=== PATIENT | male | born 2000 | race Caucasian/White ===

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

== ENCOUNTER 2020-05-14 11:50 | Emergency (ER) | payer OTHER, SELFPAY ==
--- NOTE | ~2020-05-14 | XR_ITS ---
EXAMINATION: XR lumbar spine 2-3V DATE: 05/14/2020 12:32 INDICATION: Low back pain. TECHNIQUE: 3 views of lumbar spine were obtained. COMPARISON: None. FINDINGS: Bone alignment is normal. There is mild chronic anterior wedging of T12 vertebral body, lik sola physiologic. There are Schmorl's nodes at multiple levels. Intervertebral disc heights are normal . The facet joints are unremarkable. IMPRESSION: 1. Mild lumbar spondylosis. Reviewed, dictated and finalized at location A. OR SPECIALIST IMPRESSION: 1. Mild lumbar spondylosis.
[2020-05-14 11:56] VITALS: BP 119/72; PULSE 71; RESP 16; TEMP 36.4; O2SAT 100
--- NOTE | 2020-05-14 12:01 | ED.GENADULT ---
HPI - General Adult General Chief complaint: Back Pain/Injury Stated complaint: BACK PAIN Time Seen by Provider: 05/14/20 12:08 Source: patient and RN notes reviewed Mode of arrival: ambulatory Limitations: no limitations History of Present Illness HPI narrative: 20-year-old male presents with complaints of diffused lower back pain for the past 3 days. Vik reports that he works requires him to do strenuous activity often and last night he had an episode of numbness and tingling to LT arm, none at this time. Tylenol 1,000mg (last on 05/13/20 @ 23:00) with no relief. Denies new injuries or falls. Complains of intermittent radiating pain to upper LT back. Denies fever or chills. No upper or lower extremity weakness. Exacerbating factors consist of prolong standing and bending. Denies nausea, vomiting, or abdominal pain. Tolerating po intake well. Denies problems with urinating or having a bowel movement, LBM this morning per patient and normal. No flank pain or hematuria or dysuria. The patient reports he have not been diagnosed with COVID-19. The patient reports he is not waiting for the results of a COVID-19 lab test. The patient reports he received a NEGATIVE COVID-19 test today, obtained after his father tested POSITIVE several days ago. The patient reports he do not have fever, chills, or weakness. The patient reports he do not have a new or worsening cough or shortness of breath. Denies chest pain. The patient reports he do not have any rhinorrhea, congestion, loss of taste, sore throat, and diarrhea. Denies recent traveling. Vik reports concerns for COVID-19 due to several family exposures but has been home with limited outdoor exposure except for essential household needs, work, and return home. At this time, patient is not suspected of having COVID-19. Some parts of this dictation were generated by voice recognition software and may contain typographical and/or grammatical inaccuracies. Related Data Allergies Allergy/AdvReac Type Severity Reaction Status Date / Time amoxicillin Allergy Unknown Skin Verified 05/14/20 11:55 Reaction Penicillins Allergy Unknown Skin Verified 05/14/20 11:55 Reaction Review of Systems Review of Systems: Narrative: CONSTITUTIONAL: Denies fever, chills, sweats. EYES: Denies visual changes, redness, discharge. ENT: Denies rhinorrhea, congestion, sore throat, otalgia. CARDIOVASCULAR: Denies chest pain, palpitations, edema. RESPIRATORY: Denies dyspnea, wheezing, cough. GASTROINTESTINAL: Denies abdominal pain, nausea, vomiting, diarrhea. GENITOURINARY: Denies dysuria, hematuria, abnormal discharge. SKIN: Denies rash or itching. MUSCULOSKELETAL: Complains of diffused lower back pain. Denies joint pain or myalgia. NEUROLOGIC: Denies numbness or focal weakness. PSYCHIATRIC: Denies anxiety or depression. All systems reviewed & are unremarkable except as noted in HPI and below [facility] Past Medical History Medical History (Updated 05/14/20 @ 13:35 by JODIE Cagle) Adjustment disorder Concussion Head injury Knee strain Migraine Vik says started after head injury he experienced in [employer] Rhus dermatitis Tear of MCL (medial collateral ligament) of knee LT Surgical History Surgical History No significant past surgical history Family History Family History Other Family history of attention deficit hyperactivity disorder (ADHD) Social History Social History (Updated 05/14/20 @ 12:31 by JODIE Cagle) Smoking status: Never smoker Tobacco type: cigarettes Second hand tobacco smoke exposure: Yes (Vik reports he is exposed by coworkers) Alcohol intake: current Substance use: never Living arrangements: with family Additional living arrangements comments: Parent Occupation/Education: occupation Gender identi
== END 2020-05-14 12:53 | disposition home or self-care (01) ==
PROVIDERS: Emergency Provider Nurse Practitioner Family; PCP Family Medicine
DX: M54.5 Low back pain (principal); M47.816 Spondylosis without myelopathy or radiculopathy, lumbar region
CPT/HCPCS: 72100; 99213; G0463

== ENCOUNTER 2020-05-30 17:02 | Emergency (ER) | payer OTHER, SELFPAY ==
--- NOTE | ~2020-05-30 | XR_ITS ---
EXAMINATION: XR hand LT min 3V DATE: 05/30/2020 17:21 INDICATION: Left hand pain. TECHNIQUE: 3 views of left hand were obtained. COMPARISON: None. FINDINGS: Bone alignment is normal. No fracture. Joint spaces are well maintained. IMPRESSION: 1. Normal left hand. Reviewed, dictated and finalized at location A. ACE OPERATOR AND TENDER IMPRESSION: 1. Normal left hand.
[2020-05-30 17:08] VITALS: BP 131/76; PULSE 66; RESP 20; TEMP 37.1; O2SAT 100
--- NOTE | 2020-05-30 17:14 | ED.UPPEXIN ---
HPI - Extremity Injury (Upper) General Chief Complaint: Extremity Injury, Upper Stated Complaint: lt hand injury Time Seen by Provider: 05/30/20 17:14 Source: patient and RN notes reviewed Mode of arrival: ambulatory Limitations: no limitations History of Present Illness HPI narrative: 20 year old [facility] who [facility] of injury to his dorsal distal fingers on his left hand # 3,4, and 5th fingers. he states that he was working on a spring loaded air gun and spring came back and pinched and smashed his rd, 4th and 5th distal dorsal fingers with no damage to his nail. Patient has small superficial laceration to the distal dorsal region near DIP area which measures 1cm with no bleeding noted. also avulsion type of area to the 4th distal dorsal region near DIP region. Patient states that his finger tips feel kind of numb and it is painful to move fingers he has strong left radial pulse and fingers pink and warm. MD complaint: injury to: left and finger (3rd,4th and 5th fingers left hand dorsal area) Onset (ago): hour(s) (approximately 1 hour) Other Extremity Injury: Left: fingers (3rd, 4th, 5th distal dorsal area) Other injuries: none Handedness: right Place: home Severity: moderate Severity scale (1-10): 2 Exacerbating factors: movement of extremity Context: other (contusion) Associated symptoms: numbness (to finger tips) Treatments prior to arrival: bandage Related Data Home Medications Medication Instructions Recorded Confirmed cyclobenzaprine mg 05/30/20 Allergies Allergy/AdvReac Type Severity Reaction Status Date / Time amoxicillin Allergy Unknown Skin Verified 05/30/20 17:14 Reaction Penicillins Allergy Unknown Skin Verified 05/30/20 17:14 Reaction Review of Systems Review of Systems: Narrative: CONSTITUTIONAL: Denies fever, chills, or sweats. EYES: Denies visual changes, redness, or discharge. ENT: Denies rhinorrhea, congestion, sore throat, or otalgia. CARDIOVASCULAR: Denies chest pain, palpitations, or edema. RESPIRATORY: Denies cough or dyspnea. GASTROINTESTINAL: Denies abdominal pain, nausea, vomiting, or diarrhea. GENITOURINARY: Denies dysuria or hematuria. SKIN: Denies rash or itching.superficial 1cm laceration to 3rd finger left hand distal dorsal area with no drainage and avulsion of small area of skin distal dorsal 4th finger MUSCULOSKELETAL: Denies back pain,positive for discomfort to the distal dorsal area of left 3.4.and 5th fingers , or myalgia. NEUROLOGIC: Denies headache, numbness, or weakness. PSYCHIATRIC: history of anxiety or depression. All systems reviewed & are unremarkable except as noted in HPI and below [facility] Past Medical History Medical History Adjustment disorder Concussion Head injury Knee strain Migraine Vik says started after head injury he experienced in [employer] Rhus dermatitis Tear of MCL (medial collateral ligament) of knee LT Surgical History Surgical History No significant past surgical history Family History Family History Other Family history of attention deficit hyperactivity disorder (ADHD) Social History Social History Smoking status: Never smoker Tobacco type: cigarettes Second hand tobacco smoke exposure: Yes (Vik reports he is exposed by coworkers) Alcohol intake: current Substance use: never Additional living arrangements comments: Parent Gender identity (if verbalized by the patient): Male Comments At time of signature, agree with nursing past medical, surgical, social and family history. There is no relevant family history pertinent to the presenting complaint Exam Narrative: Exam Narrative: GENERAL: Well-appearing, well-nourished, and in no acute distress. HEAD: Normocephal
== END 2020-05-30 17:45 | disposition home or self-care (01) ==
PROVIDERS: Emergency Provider Registered Nurse; PCP Family Medicine
DX: S60.032A Contusion of left middle finger without damage to nail, initial encounter (principal); S60.042A Contusion of left ring finger without damage to nail, initial encounter; S60.052A Contusion of left little finger without damage to nail, initial encounter; W22.8XXA Striking against or struck by other objects, initial encounter; S60.413A Abrasion of left middle finger, initial encounter; S60.415A Abrasion of left ring finger, initial encounter
CPT/HCPCS: 73130; 99213; G0463

== ENCOUNTER → 2020-09-25 13:01 | Outpatient (CLI) | payer OTHER, SELFPAY ==
--- NOTE | ~2020-09-25 | XR_ITS ---
EXAMINATION: XR forearm RT 2V, XR wrist RT 2V, XR elbow RT min 3V DATE: 09/25/2020 16:11 INDICATION: 4 days of right elbow, forearm and wrist pain. TECHNIQUE: 1. 4 views of the right elbow including anteroposterior, flexed lateral and 2 oblique projections. 2. AP an lateral views of the right forearm were obtained. 3. Dorsal palmar and lateral views of the right wrist were obtained. COMPARISON: none FINDINGS: Bone alignment is normal from the right elbow through the wrist and visualized right hand. There is e xaggerated indentation of the cortical contour at the posterior right radial head neck junction suspi cious for fracture but without definitive sharp angulation of the cortex or suspicious linear lucency or sclerosis to suggest acute fracture with favor old fracture deformity. No other lesions suspiciou s for fracture identified. Joint spaces are normal. Soft tissues are unremarkable. No right elbow tanisha nt effusion. IMPRESSION: 1. Suggestion of old healed fracture at the proximal right radial head neck junction. Correlate with clinical history. No acute osseous abnormality. Reviewed, dictated and finalized at location A. IMPRESSION: 1. Suggestion of old healed fracture at the proximal right radial head neck jorge a ction. Correlate with clinical history. No acute osseous abnormality. IMPRESSION: 1. Suggestion of old healed fracture at the proximal right radial head neck jorge a ction. Correlate with clinical history. No acute osseous abnormality.
== END ==
PROVIDERS: PCP Family Medicine; Visit Provider Physician Assistant
DX: M79.639 Pain in unspecified forearm (principal)
CPT/HCPCS: 73080; 73090; 73100

== ENCOUNTER → 2021-10-24 07:48 | Outpatient (CLI) | payer OTHER, SELFPAY ==
--- NOTE | ~2021-10-24 | US_ITS ---
EXAMINATION: US soft tissue abdomen DATE: 10/24/2021 08:13 INDICATION: Periumbilical pain TECHNIQUE: Multiple grayscale and Doppler ultrasound images of the abdomen were obtained. COMPARISON: None FINDINGS: Subtle movement with Valsalva of a minimal amount of fat within a tiny umbilical hernia measuring les s than 1 cm in maximal dimension. No evident herniated bowel. IMPRESSION: 1. Tiny fat-containing umbilical hernia. Reviewed, dictated and finalized at location B.
== END ==
PROVIDERS: PCP Family Medicine; Visit Provider Physician Assistant
DX: R10.33 Periumbilical pain (principal); K42.9 Umbilical hernia without obstruction or gangrene
CPT/HCPCS: 76705

== ENCOUNTER 2022-08-26 08:55 | Emergency (ER) | payer OTHER, SELFPAY ==
--- NOTE | ~2022-08-26 | CT_ITS ---
EXAMINATION: CT brain wo con DATE: 08/26/2022 09:46 INDICATION: Head injury. TECHNIQUE: Computed tomography (CT) of the head was performed without intravenous contrast. The mA wa s adjusted according to patient size. Iterative reconstruction technique was employed. The dose-lengt h product was 605.33 mGy-cm. COMPARISON: Head CT 03/24/2018 FINDINGS: There is no intracranial hemorrhage, acute infarction, or abnormal intracranial mass lesion . The ventricles are normal in size. There is mild mucosal thickening in the paranasal sinuses. The o rbits are normal. The mastoid air cells are normal. IMPRESSION: 1. Normal brain. Reviewed, dictated and finalized at location D. IMPRESSION: 1. Normal brain.
[2022-08-26 09:21] VITALS: BP 124/80; PULSE 64; RESP 18; TEMP 36.5; O2SAT 99
[2022-08-26 11:17] VITALS: BP 125/85; PULSE 69; RESP 18; TEMP 37; O2SAT 100
[2022-08-26 11:21] VITALS: O2SAT 100
--- NOTE | 2022-08-26 11:26 | ED.HEATRA ---
HPI - Head Injury General Chief complaint: Head Injury Stated complaint: head injury Time Seen by Provider: 08/26/22 11:20 Source: patient and RN notes reviewed Mode of arrival: ambulatory Limitations: no limitations History of Present Illness HPI Narrative: This is a 22 year old male who presents for evaluation of a head injury. Patient states he was hit on left side of head with metal post at work yesterday. He denies LOC. He has dizziness with nausea. He also reports throbbing left side headache today. He took some home remedy with essential oils, but he has not taken any other medication or treatment. Related Data Allergies Allergy/AdvReac Type Severity Reaction Status Date / Time amoxicillin Allergy Unknown Skin Verified 08/26/22 11:21 Reaction Penicillins Allergy Unknown Skin Verified 08/26/22 11:21 Reaction Review of Systems Constitutional: Constitutional: Denies weakness Cardiovascular: Cardiovascular: Denies syncope, Denies rapid heart rate, Denies irregular heart rhythm, Denies leg edema and Denies dyspnea Respiratory: Respiratory: Denies chest congestion, Denies hemoptysis, Denies excessive phlegm production and Denies dyspnea Gastrointestinal: Gastrointestinal: Denies abdominal pain, Denies hematochezia, Denies diarrhea, Reports nausea and Denies vomiting Genitourinary: Genitourinary: Denies hematuria, Denies dysuria, Denies penile discharge and Denies testicular pain Musculoskeletal: Musculoskeletal: Denies joint swelling, Denies loss of height and Denies muscle weakness Neurologic: Reports dizziness, Denies syncope, Reports headache(s), Denies focal weakness and Denies weakness PMFSH Past Medical History Medical History (Updated 08/26/22 @ 12:47 by Venus Soares MD) Adjustment disorder Concussion Head injury Knee strain Migraine Vik says started after head injury he experienced in [employer] Rhus dermatitis Tear of MCL (medial collateral ligament) of knee LT Surgical History Surgical History No significant past surgical history Family History Family History Other Family history of attention deficit hyperactivity disorder (ADHD) Social History Social History Smoking status: Never smoker Tobacco type: cigarettes Second hand tobacco smoke exposure: Yes (Vik reports he is exposed by coworkers) Alcohol intake: current Substance use: never Living arrangements: with family Additional living arrangements comments: Parent Occupation/Education: occupation Gender identity (if verbalized by the patient): Male Sexual Orientation (if Verbalized by the Patient): Straight or Heterosexual Exam Const: General: no acute distress and alert Nutritional Appearance: well nourished Orientation/consciousness: patient oriented x3 Limitations: no limitations HENMT: Head: normal to inspection Ears: external ears normal Face/Nose/Sinus: Normal external nose present Face and sinus: normal facial exam Throat: posterior oropharynx normal and uvula midline Eyes: EOM: EOMs intact bilaterally Neck: Neck: normal visual inspection Chest: Chest palpation & inspection: normal inspection of the chest Resp: Effort & Inspection: normal respiratory effort Auscultation: clear to auscultation bilaterally Cardio: Rate: regular rate Rhythm: regular rhythm Heart sounds: no murmurs GI: GI Palp: Yes Soft to palpation, No Tenderness to palpation present (GI), No Guarding due to palpation present (GI) and No Rigid due to palpation Skin: General skin exam: normal color Rashes: no rashes Wounds: no wounds Neuro: General: patient oriented x3 and moves all extremities Cranial nerves: Yes CN's II-XII intact bilaterally Speech: normal speech Gait exam (Neuro): Normal gait present Extrem: General: normal to inspection
[2022-08-26] MEDS: IBUPROFEN 400 MG TABLET 800 MG PO (11:39)
[2022-08-26] MEDS: ONDANSETRON HCL ODT 4 MG TABLET PO (11:39)
== END 2022-08-26 12:54 | disposition home or self-care (01) ==
PROVIDERS: Emergency Provider General Practice; PCP Family Medicine
DX: S06.0X0A Concussion without loss of consciousness, initial encounter (principal); Z77.22 Contact with and (suspected) exposure to environmental tobacco smoke (acute) (chronic); W22.8XXA Striking against or struck by other objects, initial encounter
CPT/HCPCS: 70450; 99284; A9270

== ENCOUNTER 2022-11-19 10:41 | Emergency (ER) | payer OTHER, SELFPAY ==
--- NOTE | 2022-11-19 10:44 | ED.EXTPRO ---
HPI - Extremity Problem General Chief complaint: Extremity Problem,Nontraumatic Stated complaint: R ARM SWELLING/CAN'T USE HAND Time Seen by Provider: 11/19/22 10:44 Source: patient Mode of arrival: ambulatory Limitations: no limitations History of Present Illness HPI Narrative: Vik is a 22-year-old male patient presenting to the clinic today with complaints of right arm swelling and unable to use his right hand. He reports symptoms have been going on for 2 years but has recently gotten worse. He has been told he has had tendinitis in his forearm and wrist. States he is having difficulty gripping with the right hand and is dropping items. 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 Does repetitious work and uses a lot of tools that causes vibration. States the pain is sharp and his wrist and radiates up into the forearm. Related Data Allergies Allergy/AdvReac Type Severity Reaction Status Date / Time amoxicillin Allergy Unknown Skin Verified 08/26/22 11:21 Reaction Penicillins Allergy Unknown Skin Verified 08/26/22 11:21 Reaction Review of Systems Review of Systems: Pertinent positives per HPI. Patient denies any fever, chills, rash, headache, visual changes, dizziness, cough, runny nose, sore throat, shortness of breath, chest pain, palpitations, nausea, vomiting, diarrhea, constipation, abdominal pain, or any urinary issues. [facility] Past Medical History Medical History Adjustment disorder Concussion Head injury Knee strain Migraine Vik says started after head injury he experienced in the [facility] Rhus dermatitis Tear of MCL (medial collateral ligament) of knee LT Surgical History Surgical History No significant past surgical history Family History Family History Other Family history of attention deficit hyperactivity disorder (ADHD) Social History Social History Smoking status: Never smoker Tobacco type: cigarettes Second hand tobacco smoke exposure: Yes (Vik reports he is exposed by coworkers) Alcohol intake: current Substance use: never Living arrangements: with family Additional living arrangements comments: Parent Occupation/Education: occupation Gender identity (if verbalized by the patient): Male Sexual Orientation (if Verbalized by the Patient): Straight or Heterosexual Comments At the time of my signature, I reviewed and agree with the nursing past medical, surgical, social, and family history. There is no relevant family history pertinent to the patient complaint. Exam Narrative: General: Well-developed, well nourished, in no apparent distress Head: Normocephalic, atraumatic. Cardio: Regular rate and rhythm, s1 and s2 normal, no murmur appreciated. Resp: Clear to auscultation bilaterally, no rhonchi, rales, wheezing or rubs. Musculoskeletal: No deformity, mild swelling to the right wrist and forearm, positive Tinel's over the right radial wrist and right anterior elbow, positive Phalen's test, negative Lamberto, tender to palpation over the right radial wrist, very weak hand grasp on the right when compared to the left, grossly normal range of motion, muscle strength strong and equal, peripheral pulse strong, no cyanosis, normal gait and station Course Course Emergency Course: Portions of this record may have been created with voice recognition software. Level of Care: Express Care Visit Vital Signs Vital signs: Vital signs reviewed MDM - Extremity (Nontraumatic) MDM Narrative Medical decision making narrative: At the time of visit patient is resting on the exam table. I suspect patient may have carpal tunnel syndrome of the right wrist versus tendinitis. Will place the patient on
[2022-11-19 10:50] VITALS: BP 125/83; PULSE 75; RESP 16; TEMP 36.6; O2SAT 99
== END 2022-11-19 11:13 | disposition home or self-care (01) ==
PROVIDERS: Emergency Provider Nurse Practitioner Family
DX: G56.01 Carpal tunnel syndrome, right upper limb (principal)
CPT/HCPCS: 99213; G0463

== ENCOUNTER 2023-04-02 09:19 | Outpatient (CLI) | payer OTHER, SELFPAY ==
--- NOTE | 2023-04-02 11:00 | NEURO_ITS ---
Impression: # Complains of pain in right hand, status post Carpal Tunnel Release. # No Carpal Tunnel Syndrome or ulnar neuropathy. # Normal needle/EMG exam. # There is cross innervation between median and ulnar nerves. # Clinical correlation recommended. Nerve Conduction Studies Anti Sensory Summary Table Stim Site NR Peak (ms) P-T Amp (?V) Site1 Site2 Delta-P (ms) Dist (cm) Sixto (m/s) Right Median Anti Sensory (2-3nd Digit) Wrist 3.0 72.2 Wrist 2-3nd Digit 3.0 14.0 47 Wrist 2.8 49.7 Wrist 2-3nd Digit 3.0 14.0 47 Right Radial Anti Sensory (Base 1st Digit) Wrist 2.1 17.2 Wrist Base 1st Digit 2.1 0.0 Right Ulnar Anti Sensory (5th Digit) Wrist 2.6 72.4 Wrist 5th Digit 2.6 14.0 54 Motor Summary Table Stim Site NR Onset (ms) O-P Amp (mV) Site1 Site2 Delta-0 (ms) Dist (cm) Sixto (m/s) Right Median Motor (Abd Poll Brev) Wrist 3.1 2.7 Elbow Wrist 5.0 29.0 58 Elbow 8.1 2.5 Right Ulnar Motor (Abd Dig Minimi) Wrist 2.9 10.1 A Elbow Wrist 5.6 32.0 57 A Elbow 8.5 8.8 F Wave Studies NR F-Lat (ms) L-R F-Lat (ms) Right Median (Mrkrs) (Abd Poll Brev) 28.44 Right Ulnar (Mrkrs) (Abd Dig Min) 29.90 EMG Side Muscle Nerve Root Ins Act Fibs Amp Dur Recrt Comment Right 1stDorInt Ulnar C8-T1 Nml Nml Nml Nml Nml Right Ext Indicis Radial (Post Int) C7-8 Nml Nml Nml Nml Nml Right Ext Digitorum Radial (Post Int) C7-8 Nml Nml Nml Nml Nml Right BrachioRad Radial C5-6 Nml Nml Nml Nml Nml Right PronatorTeres Median C6-7 Nml Nml Nml Nml Nml Right Abd Poll Brev Median C8-T1 Nml Nml Nml Nml Nml Right ABD Dig Min Ulnar C8-T1 Nml Nml Nml Nml Nml Right Biceps Musculocut C5-6 Nml Nml Nml Nml Nml Right Triceps Radial C6-7-8 Nml Nml Nml Nml Nml MTDD
== END 2023-04-02 09:20 | disposition home or self-care (01) ==
PROVIDERS: Visit Provider Plastic Surgery
DX: M79.641 Pain in right hand (principal)
CPT/HCPCS: 95886; 95909

== ENCOUNTER 2023-04-08 12:55 | Emergency (ER) | payer OTHER, SELFPAY ==
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
[2023-04-08 12:57] VITALS: BP 143/87; PULSE 93; RESP 18; TEMP 36.7; O2SAT 100
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
[2023-04-08] MEDS: ACETAMINOPHEN 500 MG TABLET 1000 MG PO (16:19)
[2023-04-08] MEDS: CYCLOBENZAPRINE HCL 10 MG TABLET PO (16:20)
--- NOTE | 2023-04-08 16:26 | PC.NURSE ---
c collar removed per negative images.
[2023-04-08 18:18] VITALS: BP 142/84; PULSE 84; RESP 16; O2SAT 98
== END 2023-04-08 18:22 | disposition home or self-care (01) ==
PROVIDERS: Emergency Provider Student in an Organized Health Care Education/Training Program
DX: S09.90XA Unspecified injury of head, initial encounter (principal); M54.2 Cervicalgia; M25.512 Pain in left shoulder; V43.52XA Car driver injured in collision with other type car in traffic accident, initial encounter
CPT/HCPCS: 70450; 72100; 72125; 73030; 99284; A9270